=== PATIENT | male | born 1965 | race Caucasian/White ===

== ENCOUNTER 2024-10-10 09:13 | Emergency (ER) | payer OTHER, SELFPAY ==
[2024-10-10] VITALS (7 sets, daily range): BP systolic 110–156; BP diastolic 53–79; PULSE 83–94; RESP 16–20; TEMP 36.6–36.7; O2SAT 95–99; BMI 29.0
--- NOTE | 2024-10-10 09:32 | RAD_ITS ---
STUDY: X-RAY CHEST REASON FOR EXAM: Male, 59 years old. Several day history of shortness of breath. TECHNIQUE: PA and lateral views of the chest. COMPARISON: None. FINDINGS: EKG electrodes are seen. Mild degree of increased markings in the lingular segment of the left upper lobe suggestive of either atelectasis and/or possible scarring. There is no demonstrated pleural abnormality. Sternal cerclage wires and vascular clips are present from a prior sternotomy and coronary artery bypass graft procedure (CABG). Normal mediastinum and kelsey. Normal visualized pulmonary arteries. Normal visualized aortic arch and descending thoracic aorta. Normal visualized thoracic spine. Normal visualized ribs, clavicles, and shoulders. There is no demonstrated abnormality of the visualized soft tissue structures of the upper abdomen. RAD/Chest PA and Lateral IMPRESSION: Mild increased markings in the lingular segment of the left upper lobe. This may represent either linear atelectasis and/or possible scarring. Electronically Signed: Charbel Prieto MD at 9:55 EST ,
--- NOTE | 2024-10-10 09:32 | EKG12_ITS ---
Test Reason : SOB Blood Pressure : */* mmHG Vent. Rate : 95 BPM Atrial Rate : 95 BPM P-R Int : 252 ms QRS Dur : 108 ms QT Int : 324 ms P-R-T Axes : 54 17 115 degrees QTcB Int : 407 ms Sinus rhythm with 1st degree A-V block with frequent Premature ventricular complexes ST & T wave abnormality, consider lateral ischemia Abnormal ECG Confirmed by SKYLER MARC, KENDALL ([id number]), general expeditor BRYAN ISBELL ([id number]) on 10/14/2024 7:17:09 AM Referred By: Confirmed By: KENDALL HOLLAND MD
--- NOTE | 2024-10-10 09:35 | ED.VIS.DYS ---
HPI History of Present Illness Chief Complaint: Shortness of Breath Informant: patient and EMS Narrative Narrative: 59-year-old male presenting to the emergency room with a chief complaint of dyspnea. Patient states over the past 3 to 4 days whenever he exerts himself outside he gets short of breath. He also notes a cough with some sputum production. He states that he takes isosorbide which seems to help. That was a curious statement as he takes it usually every day but its only been over the past 3 to 4 days it has had the shortness of breath. He states he can exert himself indoors he does not get the symptoms. He denies any fever. He notes a history of coronary artery disease status post CABG and follows with Dr. Carreon at [facility]. Patient denies any chest pain with it. He denies any sweating or vomiting. [facility] Medical History Bypass graft stenosis Diabetes Home Medications ?Medication ?Instructions ?Recorded ?Last Taken ?Type aspirin 81 mg capsule 81 mg PO DAILY 10/10/24 10/10/24 History atorvastatin 80 mg tablet 80 mg PO QHS 10/10/24 10/09/24 History dapagliflozin propanediol 10 mg 10 mg PO DAILY 10/10/24 10/10/24 History tablet (Farxiga) ezetimibe 10 mg tablet 10 mg PO DAILY 10/10/24 10/10/24 History glimepiride 2 mg tablet 2 mg PO DAILY 10/10/24 10/10/24 History isosorbide mononitrate 60 mg 60 mg PO DAILY 10/10/24 10/10/24 History tablet,extended release 24 hr losartan 100 mg tablet (Cozaar) 100 mg PO DAILY 10/10/24 10/10/24 History metoprolol tartrate 50 mg tablet 50 mg PO Q12H 10/10/24 10/10/24 History pioglitazone 30 mg tablet 30 mg PO DAILY 10/10/24 10/10/24 History tirzepatide 5 mg/0.5 mL 5 mg subcut QWEEK 10/10/24 10/04/24 History subcutaneous pen injector (Harshadunmaribelro) Social History Smoking Status: Never smoker ROS ROS ED Constitutional Constitutional ED: Denies chills, fever(s) or weight loss Eyes Eyes: Denies change in vision or diplopia ENT ENT ED: Denies ear pain, rhinorrhea or sore throat Cardiovascular Cardiovascular: Denies chest pain, orthopnea, palpitations or racing heartbeat Respiratory/Chest Respiratory/Chest: Reports cough, dyspnea and sputum; Denies orthopnea Gastrointestinal Gastrointestinal: Denies abdominal pain, diarrhea, nausea or vomiting Genitourinary Genitourinary ED: Denies dysuria, hematuria or urinary frequency Musculoskeletal Musculoskeletal: Denies arthralgias or myalgias Integumentary Denies abscess or rash Neurologic Neurologic: Denies headache(s) or weakness Psychiatric Psychiatric: Denies anxiety, depression, suicidal ideation or suicidal thoughts Endocrine Endocrinology: Denies polydipsia, polyphagia or polyuria Allergic/Immunologic Allergic/Immunologic ED: Denies mouth swelling, tongue swelling or urticaria EXAM Physical Exam Const Vital Signs: 10/10/24 09:14 10/10/24 09:17 10/10/24 09:20 Temperature 98.0 F 98.0 F Temperature Source Oral Oral Pulse Rate 94 94 Respiratory Rate 16 16 Respiratory Effort Short of Breath Respiratory Depth Normal Respiratory Pattern Normal Blood Pressure 156/79 H 156/79 H Blood Pressure Mean 104 104 Pulse Ox 98 97 Oxygen Delivery Method Room Air Room Air Room Air 10/10/24 10:17 10/10/24 11:00 10/10/24 11:39 Temperature 98.0 F 97.8 F 98.0 F Temperature Source Oral Oral Pulse Rate 83 86 84 Respiratory Rate 16 20 H 16 Respiratory Effort Respiratory Depth Respiratory Pattern Blood Pressure 110/53 L 148/66 H 145/77 H Blood Pressure Mean 72 93 99 Pulse Ox 95 97 99 Oxygen Delivery Method Room Air Room Air Positive well nourished and well developed General Appearance ED: well developed HEENT Reports normocephalic, head/scalp atraumatic and moist mucous membranes Eyes PERRL and EOMs intact bilaterally Neck no lymphadenopathy, supple and no JVD Resp normal respiratory effort and clear to auscultation bilaterally Cardio regular rate, regular rhythm and no murmurs GI normal to inspection, nondistended, normoactive bowel sounds and non-tender Palpation: soft Back/Spine no CVA tenderness and normal ROM Extremity normal to inspection General Extremety ED: Negative for edema General Extremity: Negative for edema Neuro oriented x3 and CN's II-XII intact bilaterally Sensorium / Orientation: alert Motor Exam: strength 5/5 throughout Psych mental status grossly normal Mood & Affect: Negative for depressed or tearful Skin no rashes or lesions noted and no wounds MDM MDM MDM Narrative Medical decision making narrative: Differential diagnosis includes but not limited to bronchospasm coronary artery disease progression/unstable angina pneumonia bronchitis pleural effusion congestive heart failure viral syndrome Patient's white count 10.3 platelet count 195 hemoglobin is 13. Creatinine 1.86 BUN of 38 troponin 152. EKG is normal sinus rhythm with PVCs. My independent interpretation of the chest x-ray is no acute process. Please see radiologist read which shows left lingular atelectasis versus possible scarring. Because of the patient's exertional symptoms and his elevated troponin I believe further evaluation of his heart is indicated. Spoke with the patient and he requested transfer to [facility]. I spoke with their transfer line but they tell me that there are at least 26 people currently ahead of him waiting for a bed. I spoke with the patient he is comfortable with being admitted here if need be. I spoke with the hospitalist who has agreed admit the patient Hospitalist came to the emergency department to evaluate the patient. Patient is now requesting to leave [facility] stating that he is going to go to [facility] [place] for evaluation. He understands the risk benefit. He understands that he is at risk for sudden cardiac or disability. History & Record Review Discussion w/independent historian: EMS personnel and Patient Lab Data Attestation: I reviewed the patient's lab results. Labs: Laboratory Results - last 24 hr 10/10/24 09:16 WBC 10.3 RBC 4.30 L Hgb 13.0 Hct 38.8 L MCV 90.2 MCH 30.2 MCHC 33.5 RDW Std Deviation 46.6 H RDW Coeff of Mandi 14.1 Plt Count 195 MPV 11.0 Immature Gran % (Auto) 0.400 Neut % (Auto) 78.1 H Lymph % (Auto) 12.3 L [place] % (Auto) 7.8 Eos % (Auto) 1.2 Baso % (Auto) 0.2 Absolute Neuts (auto) 8.1 H Absolute Lymphs (auto) 1.27 Nucleated RBC % 0 Sodium 134 L Potassium 4.9 Chloride 106 Carbon Dioxide 23.0 Anion Gap 5 BUN 38 H Creatinine 1.86 H Estim Creat Clear Calc 45.75 Est GFR (MDRD) Af Amer 48 L Est GFR (MDRD) Non-Af 40 L BUN/Creatinine Ratio 20.4 H Glucose 208 H Calcium 9.3 Troponin I High Sens 152 H* Radiography Diagnostic Testing: Clinical Impression(s) from Imaging Studies Chest X-Ray 10/10/24 09:32 IMPRESSION: Mild increased markings in the lingular segment of the left upper lobe. This may represent either linear atelectasis and/or possible scarring. Electronically Signed: Charbel Prieto MD at 9:55 EST , EKG Initial EKG: Attestation: I personally reviewed and interpreted this EKG as follows: Comments: Sinus rhythm first-degree AV block with PVCs noted. Ventricular rate of 95 bpm Management Discussion w/another healthcare provider: Hospitalist (Dr Ventura) and Bag Grader ([facility] Transfer Line) Discharge Plan Triage Chief Complaint: Shortness of Breath ED Provider: Emir Boles Dx/Rx/DC Orders Clinical Impression: Acute dyspnea, Elevated troponin, Coronary artery disease, Diabetes Prescriptions: No Action isosorbide mononitrate 60 mg tablet extended release 24 hr 60 mg PO DAILY dapagliflozin propanediol [Farxiga] 10 mg tablet 10 mg PO DAILY atorvastatin 80 mg tablet 80 mg PO QHS losartan [Cozaar] 100 mg tablet 100 mg PO DAILY glimepiride 2 mg tablet 2 mg PO DAILY aspirin 81 mg capsule 81 mg PO DAILY metoprolol tartrate 50 mg tablet 50 mg PO Q12H pioglitazone 30 mg tablet 30 mg PO DAILY ezetimibe 10 mg tablet 10 mg PO DAILY Mounjaro 5 mg/0.5 mL pen injector 5 mg SUBCUT QWEEK Patient Comments: [NO ORIGINAL SIG] Primary Care Provider: Care Physician,No Primary Referrals: Care Physician,No Primary [Primary Care Provider] - Print Language: Arabic Disposition Disposition: Against Medical Advice
[2024-10-10 09:46] LABS: Absolute Lymphocyte Count 1.27 X10^3/uL (0.83-4.51); Absolute Neutrophil Count 8.1 X10^3/uL (2.0-7.7); Basophil# 0.02 X10^3/uL; Basophil% 0.2 % (0-1); Eosinophil# 0.12 X10^3/uL; Eosinophils% 1.2 % (0-5); Hematocrit 38.8 % (40-54); Lymphocyte # 1.27 X10^3/ul (0.83-4.51); Lymphocyte % 12.3 % (19-41); Mean Corp Hgb Conc 33.5 g/dL (32-36); Mean Corpuscular Hgb 30.2 pg (27.0-32.0); Mean Corpuscular Volume 90.2 fL (80-94); Monocyte% 7.8 % (0-10); NRBC Flagged by Analyzer 0 % (0-5); Neutrophil # 8.05 X10^3/uL (2.7-7.7); Neutrophil % 78.1 % (47-70); Platelet Count 195 K/mm3 (150-450); RBC Distribution Width CV 14.1 % (11.6-14.6); RBC Distribution Width SD 46.6 fl (35.1-43.9); White Blood Count 10.3 K/mm3 (4.4-11.0)
[2024-10-10 10:18] LABS: Anion Gap 5 (5-15); BUN 38 mg/dL (7-18); BUN/Creat Ratio 20.4 RATIO (10-20); Calcium,Total 9.3 mg/dL (8.5-10.1); Chloride 106 mmol/L (98-107); Creatinine, Serum 1.86 mg/dL (0.70-1.30); EST Glomerular Filtration Rate 40 mL/min (>60); Est Glom Filt Rate - Afr Amer 48 mL/min (>60); Estimated Creatinine Clearance 45.75 ml/min; Glucose 208 mg/dL (74-106); Potassium 4.9 mmol/L (3.5-5.1); Sodium Level 134 mmol/L (136-145); Troponin-I HS (w/2H Reflex) 152 pg/mL (3.0-78.0)
--- NOTE | 2024-10-10 10:19 | NURSING ---
Dr Boles notified of critical troponin level.
[2024-10-10 11:39] LABS: Reflex Troponin-HS? (from REC) Y
[2024-10-10] MEDS: Aspirin 325 MG Tablet PO (11:45)
--- NOTE | 2024-10-10 11:55 | PN.HOSP_ITS ---
Hospitalist Note I was asked to see the patient to be admitted for chest pain. Patient was at work had shortness of breath and EMS was called and patient was brought to the hospital. EKG showed sinus rhythm first-degree AV block. And troponins were elevated at 152. Patient requested being transferred to [facility] as that is where his cardiology workup has been done before with Dr. Carreon. The ED reached out to [facility] and they would not have a bed available until the . So I was asked to see the patient to evaluate and admit until we can get over to [facility]. I spoke with the patient and he was asking about driving to [facility] and and being evaluated. I told him that we have an obligation and that he could have worsening heart attack or cardiac arrest en route if he were to drive himself and I discouraged that recommending being brought to the hospital seeing our fulfillment mail clerk here. He declined that and would prefer to go. I did advise him that he would be leaving AGAINST MEDICAL ADVICE. He asked if his insurance to cover it. I told him I did not know but probably but he would need to speak with his insurance company about that. Let Dr. Boles and A papers are being gathered for him to sign. If patient changes his mind I will be happy to admit him here and have cardiology see him.
--- NOTE | 2024-10-10 12:01 | ED.RN ---
PT SIGNED AMA PAPERS. PATIENT WAS GIVEN DISCHARGE AND AMA COPY. PT WAS ADVISED TO GO STRAIGHT TO [facility] TO SEE HIS INSPECTOR STRUCTURAL BONDING. PT WAS ALSO ADVISED OF THE FACT THAT HE COULD IF HE DOESNT FOLLOW UP. PT STATED THAT HE UNDERSTOOD AND WAS ON THE PHONE WITH INSPECTOR STRUCTURAL BONDING.
[2024-10-10 12:31] LABS: Troponin-I HS 252 pg/mL (3.0-78.0)
--- NOTE | 2024-10-10 16:02 | CM.ED ---
Social Work Reason for visit: No PCP SW introduced self to patient, explained role in hospital and reason for visit. Patient stated he lived in [place] and was not interested in [facility] providers. No further needs identified at this time. Stephanie García, MACHINES TECHNICIAN, SIZING MACHINE TENDER
== END 2024-10-10 12:04 | disposition left against medical advice (07) ==
PROVIDERS: Emergency Provider Emergency Medicine; Visit Provider Emergency Medicine
DX: R06.00 Dyspnea, unspecified (principal); E11.9 Type 2 diabetes mellitus without complications; I25.10 Atherosclerotic heart disease of native coronary artery without angina pectoris; R79.89 Other specified abnormal findings of blood chemistry; Z79.82 Long term (current) use of aspirin; Z79.899 Other long term (current) drug therapy; Z79.84 Long term (current) use of oral hypoglycemic drugs; Z95.1 Presence of aortocoronary bypass graft
CPT/HCPCS: 71046; 80048; 84484; 85025; 87631; 93005; 99285